=== PATIENT | male | born 1965 | race Caucasian/White ===

== ENCOUNTER 2022-09-28 19:32 | Emergency (ER) | payer OTHER ==
[~2022-09-28] VITALS: Ht 180.3 cm; Wt 104.0 kg
[2022-09-28] MEDS ORDERED: TOPROL XL50 MG PO (22:20)
[2022-09-28] MEDS ORDERED: OMEPRAZOLE20 MG PO (22:20)
[2022-09-28] MEDS ORDERED: CELEBREX50 MG PO (22:20)
== END 2022-09-29 00:58 | disposition home or self-care (01) ==
LOC: ED 19:32
DX: M23.92 Unspecified internal derangement of left knee (principal); Z88.0 Allergy status to penicillin; Z88.2 Allergy status to sulfonamides; Z91.030 Bee allergy status; Z79.899 Other long term (current) drug therapy
CPT/HCPCS: 70450; 73560; 99284-25; A9270

== ENCOUNTER 2025-10-26 14:45 | Emergency (ER) | payer OTHER ==
[~2025-10-26] VITALS: Ht 180.3 cm; Wt 99.6 kg
[~2025-10-26 14:45] MED LIST: CELEBREX50 MG PO; OMEPRAZOLE20 MG PO; TOPROL XL50 MG PO
[2025-10-26] MEDS ORDERED: KETOROLAC TROMETHAMINE 15 MG/ML VIAL IV ONE (15:30)
[2025-10-26] MEDS ORDERED: SODIUM CHLORIDE 0.9% 1,000 ML IV PRN (15:45)
[2025-10-26] MEDS ORDERED: HYDROmorphone HCL 1 MG/ML SYR IV ONE (15:45)
[2025-10-26 15:50] LABS: BLOOD/HGB, URINE SMALL (Negative); KETONE, URINE NEGATIVE (Negative); LEUK ESTERASE, URINE NEGATIVE (negative); NITRITE, URINE NEGATIVE (negative)
[2025-10-26 15:58] LABS: BACTERIA, URINE NONE SEEN /hpf (negative); CASTS, URINE NONE SEEN \\lpf; CRYSTALS, URINE NONE SEEN (0-1+); EPITHELIAL CELLS, URINE 0 /lpf (0-1+); REFLEX CULTURE, URINE No (No)
[2025-10-26 16:22] LABS: BASOPHILS 0.6 % (0.2-1.2); EOSINOPHILS 1.1 % (0.8-7.0); LYMPHOCYTES 42.1 % (21.8-53.1); MCH 30.1 PG (25.7-32.2); MCHC 33.8 g/dL (32.3-36.5); MCV 89.2 fL (79.0-92.2); MONOCYTES 9.4 % (5.3-12.2); NEUTROPHILS 46.6 % (34.0-67.9); RBC 4.91 M/uL (4.63-6.08)
[2025-10-26 16:52] LABS: AST (SGOT) 11.0 U/L (15-37); GLOMERULAR FILTRATION RATE,EST 99.0 mL/min (>60); PROTEIN, TOTAL 8.1 g/dL (6.4-8.2); UREA NITROGEN 13.0 mg/dL (7-18)
[2025-10-26 17:01] LABS: ALT (SGPT) 15.0 U/L (14-59)
[2025-10-26 18:30] VITALS: BP 158/103
== END 2025-10-26 18:30 | disposition home or self-care (01) ==
LOC: ED 14:45
PROVIDERS: Emergency Medicine
DX: M54.50 Low back pain, unspecified (principal); Z91.030 Bee allergy status; Z88.8 Allergy status to other drugs, medicaments and biological substances; Z88.0 Allergy status to penicillin; Z88.2 Allergy status to sulfonamides; Z79.2 Long term (current) use of antibiotics
CPT/HCPCS: 36415; 74176; 80053; 81001; 85025; 96374; 96375; 99284-25; J1171; J1885; J2405; J7030